=== PATIENT | female | born 1975 | race Caucasian/White ===

== ENCOUNTER 2017-04-12 18:57 | Emergency (ER) | payer MEDICAID ==
[2017-04-12 19:03] VITALS: BP 132/81
--- NOTE | 2017-04-12 19:53 | ER Document Report ---
ED General - General Chief Complaint: Pain All Over Stated Complaint: WEAK,FEVER,TIGHT CHEST Time Seen by Provider: 04/12/17 19:05 Mode of Arrival: Ambulatory Information source: Patient TRAVEL OUTSIDE OF THE [place] 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, she denies any other ill contacts, no abdominal pain, no chest pain, no nausea, vomiting or diarrhea, no urinary symptoms - Related Data Allergies/Adverse Reactions: No Known Allergies Allergy (Verified 04/12/17 19:03) Past Medical History - General Information source: Patient - Social History Smoking Status: Current Every Day Smoker Drug Abuse: None Family History: Reviewed & Not Pertinent Renal/ Medical History: Denies: Hx Peritoneal Dialysis Past Surgical History: Reports: Hx Section, Hx Tubal Ligation - Immunizations Hx Diphtheria, Pertussis, Tetanus Vaccination: Yes Review of Systems - Review of Systems Constitutional: See HPI EENT: See HPI Cardiovascular: No symptoms reported Respiratory: No symptoms reported Gastrointestinal: No symptoms reported Genitourinary: No symptoms reported Female Genitourinary: No symptoms reported Musculoskeletal: See HPI Skin: No symptoms reported Hematologic/Lymphatic: No symptoms reported Neurological/Psychological: No symptoms reported -: Yes All other systems reviewed and negative Physical Exam - Vital signs Vitals: Temp Pulse Resp BP Pulse Ox 99.9 F 109 H 18 132/81 H 93 04/12/17 19:00 04/12/17 19:00 04/12/17 19:00 04/12/17 19:00 04/12/17 19:00 Interpretation: Normal - General General appearance: Appears well, Alert - HEENT Head: Normocephalic, Atraumatic Eyes: Normal Conjunctiva: Normal Extraocular movements intact: Yes Eyelashes: Normal Pupils: PERRL Sinus: Maxillary - Tenderness, Tenderness Nasal: Normal Mouth/Lips: Normal - Respiratory Respiratory status: No respiratory distress Chest status: Nontender Breath sounds: Normal Chest palpation: Normal - Cardiovascular Rhythm: Regular Heart sounds: Normal auscultation Murmur: No - Abdominal Inspection: Normal Distension: No distension Bowel sounds: Normal Tenderness: Nontender Organomegaly: No organomegaly - Back Back: Normal, Nontender - Extremities General upper extremity: Normal inspection, Nontender, Normal color, Normal ROM , Normal temperature General lower extremity: Normal inspection, Nontender, Normal color, Normal ROM , Normal temperature, Normal weight bearing. No: Roderick's sign - Neurological Neuro grossly intact: Yes Cognition: Normal Orientation: AAOx4 [place] Coma Scale Eye Opening: Spontaneous [place] Coma Scale Verbal: Oriented [place] Coma Scale Motor: Obeys Commands [place] Coma Scale Total: 15 Speech: Normal Motor strength normal: LUE, RUE, LLE, RLE Sensory: Normal - Psychological Associated symptoms: Normal affect, Normal mood - Skin Skin Temperature: Warm Skin Moisture: Dry Skin Color: Normal Course - Re-evaluation Re-evalutation: 04/12/17 20:45 Patient with signs and symptoms consistent with acute sinusitis, she was started on antibiotics and advised to drink plenty fluids, take Tylenol or Motrin as needed for fever pain, follow-up with a primary care provider or return if symptoms worsen, patient acknowledges understanding and agreement with this plan - Vital Signs Vital signs: Temp Pulse Resp BP Pulse Ox 99.9 F 109 H 18 132/81 H 93 04/12/17 19:00 04/12/17 19:00 04/12/17 19:00 04/12/17 19:00 04/12/17 19:00 Discharge - Discharge Clinical Impression: Acute sinusitis Qualifiers: Sinusitis location: maxillary Recurrence: non-recurrent Qualified Code(s): J01.00 - Acute maxillary sinusitis, unspecified Condition: Stable Disposition: HOME, SELF-CARE Instructions: Sinusitis ([facility]) Additional Instructions: Follow up with your primary care provider in one to 2 days. Return to the emergency room immediately if symptoms worsen or any additional concerns. Prescriptions: Amox Tr/Potassium Clavulanate [Augmentin 875-125 Tablet] 1 tab PO BID #20 tablet Forms: Smoking Cessation Education
== END 2017-04-12 19:55 | disposition home or self-care (01) ==
LOC: ER 18:57
DX: J01.00 Acute maxillary sinusitis, unspecified (principal)
CPT/HCPCS: 99283

== ENCOUNTER 2017-04-17 21:31 | Emergency (ER) | payer MEDICAID ==
--- NOTE | 2017-04-17 23:27 | RADIOLOGY REPORT (SQ) ---
EXAM DESCRIPTION: CHEST PA/LAT COMPLETED DATE/TIME: 04/17/2017 11:19 pm REASON FOR STUDY: fever COMPARISON: 06/15/2013 EXAM PARAMETERS: NUMBER OF VIEWS: two views TECHNIQUE: Digital Frontal and Lateral radiographic views of the chest acquired. RADIATION DOSE: NA LIMITATIONS: none FINDINGS: LUNGS AND PLEURA: No opacities, masses or pneumothorax. No pleural effusion. MEDIASTINUM AND HILAR STRUCTURES: No masses or contour abnormalities. HEART AND VASCULAR STRUCTURES: Heart normal size. No evidence for failure. BONES: No acute findings. HARDWARE: None in the chest. OTHER: No other significant finding. IMPRESSION: NO SIGNIFICANT RADIOGRAPHIC FINDING IN THE CHEST. TECHNICAL DOCUMENTATION: JOB ID: [id number] [employer]- All Rights Reserved
--- NOTE | 2017-04-18 00:01 | ER Document Report ---
ED General - General Chief Complaint: Flu Symptoms Stated Complaint: FEVER Time Seen by Provider: 04/17/17 22:54 Notes: Patient is a 42-year-old female who presents with complaint of fever and body aches for almost 2 weeks. She was seen here on April 13 and started on Augmentin for sinus infection. Just prior to that she had a tooth removed approximately 5-6 days earlier. During that time she did have a dental abscess. After that the swelling in her face has gone down and she went on a trip to [place]. 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 She then started to feel as if she had body aches fevers and some congestion. She has had mild cough. She is a smoker. She was then placed on Augmentin. She said she was feeling better. She said yesterday and this morning she felt very good and then this afternoon and evening she started to have body aches and feel unwell again. Patient denies any tick bites or bug bites that she is aware of. TRAVEL OUTSIDE OF THE [place] IN LAST 30 DAYS: No - Related Data Allergies/Adverse Reactions: No Known Allergies Allergy (Verified 04/12/17 19:03) Past Medical History - Social History Smoking Status: Current Every Day Smoker Frequency of alcohol use: None Drug Abuse: None Family History: Reviewed & Not Pertinent Patient has suicidal ideation: No Patient has homicidal ideation: No Renal/ Medical History: Denies: Hx Peritoneal Dialysis Past Surgical History: Reports: Hx Section, Hx Tubal Ligation - Immunizations Hx Diphtheria, Pertussis, Tetanus Vaccination: Yes Review of Systems - Review of Systems Notes: My Normal Review Basic REVIEW OF SYSTEMS: CONSTITUTIONAL : Subjective fever. Temp at home is been around 99. EENT: Some nasal congestion. RESPIRATORY: Denies cough, cold, or chest congestion. Denies shortness of breath, difficulty breathing, or wheezing. GASTROINTESTINAL: Denies abdominal pain. Denies nausea, vomiting, or diarrhea. Denies constipation. Last BM: GENITOURINARY: Denies difficulty urinating, painful urination, burning, frequency, or blood in urine. MUSCULOSKELETAL: Denies neck or back pain or joint pain or swelling. SKIN: Denies rash or skin lesions. NEUROLOGICAL: Denies altered mental status or loss of consciousness. Denies headache. Denies weakness or paralysis or loss of use of either side. Denies problems with gait or speech. Denies sensory or motor loss. ALL OTHER SYSTEMS REVIEWED AND NEGATIVE. Physical Exam - Vital signs Vitals: Temp Pulse Resp BP Pulse Ox 99.5 F 113 H 16 136/85 H 95 04/17/17 21:59 04/17/17 21:59 04/17/17 21:59 04/17/17 21:59 04/17/17 21:59 - Notes Notes: General Appearance: Well nourished, alert, cooperative, no acute distress, no obvious discomfort. Vitals: reviewed, See vital signs table. Head: no swelling or tenderness to the head Eyes: PERRL, EOMI, Conjuctiva clear Mouth: No decreasd moisture Throat: No tonsillar inflammation, No airway obstruction, No lymphadenopathy Neck: Supple, no neck tenderness Lungs: No wheezing, No rales, No rhonci, No accessory muscle use, good air exchange bilaterally. Heart: Tachycardic rate, Regular rythm, No murmur, no rub Abdomen: Normal BS, soft, No rigidity, No abdominal tenderness, No guarding, no rebound, no abdominal masses, no organomegaly Extremities: strength 5/5 in all extremities, good pulses in all extremities, no swelling or tenderness in the extremities, no edema. Skin: warm, dry, appropriate color, no rash Neuro: speech clear, oriented x 3, normal affect, responds appropriately to questions. Course - Re-evaluation Re-evalutation: 04/18/17 01:09 Patient has flulike symptoms. She says she has had some congestion but does not appear overly congested on exam. She has mainly body aches and low-grade fevers at home. Being that it is summertime we do have to have concern for possible [place] spotted fever as that would be a common cause of her symptoms in this part of the country. I do not titers for this. I will start on doxycycline. I encouraged her follow-up closely with her primary care doctor for reevaluation. She did have the dental work approximately a week and half ago. I do not suspect meningitis and that the patient clinically looks well, she does not have neck stiffness, she does not have high fevers. I do not think she requires lumbar puncture. Also symptoms have been ongoing for over a week and if she had bacterial meningitis she should be much more ill at this time. Patient strongly encouraged to return to ER if she has worsening or symptoms or if she feels that she is worsening in any way. Patient agrees with plan will be discharged home. Dictation of this chart was performed using voice recognition software; therefore, there may be some unintended grammatical errors. - Vital Signs Vital signs: Temp Pulse Resp BP Pulse Ox 99.5 F 113 H 16 136/85 H 95 04/17/17 21:59 04/17/17 21:59 04/17/17 21:59 04/17/17 21:59 04/17/17 21:59 - Laboratory Laboratory results interpreted by me: 04/18/17 00:35 Ur Leukocyte Esterase TRACE H Discharge - Discharge Clinical Impression: Body aches, Sinus congestion Condition: Good Disposition: HOME, SELF-CARE Additional Instructions: The exact cause of your body aches and flulike symptoms is not 100% clear at this time. Your mono test was negative. He still may have some form of sinus infection. Please continue take the Augmentin. Please quit smoking. A common cause of flulike symptoms in the summertime is something called [place] spotted fever. I will place you on an antibiotic called doxycycline. We have drawn titers for this. These titers usually take approximately 2 days to come back. Please call the number [phone]. They will be able to tell you the results. Please follow-up with your doctor in 2-3 days for close reevaluation and informed him/her of the blood work that was drawn while your visit here. It is very important that you return to the ER immediately if you have diarrhea , recurrent fevers over 100.6 despite taking Tylenol, feel that her symptoms are worsening, or severe headache with neck stiffness. Referrals: CARMEN KAHN MD [Primary Care Provider] - 04/20/17
[2017-04-18 00:53] LABS: APPEARANCE,URINE SLIGHTLY-CLOUDY; BILIRUBIN,URINE NEGATIVE (NEGATIVE); GLUCOSE, URINE NEGATIVE (NEGATIVE); KETONES,URINE NEGATIVE (NEGATIVE); LEUKOCYTE ESTERASE,URINE TRACE (NEGATIVE); NITRITE,URINE NEGATIVE (NEGATIVE); PROTEIN,URINE NEGATIVE (NEGATIVE); URINE SPECIFIC GRAVITY 1.014; UROBILINOGEN,URINE NEGATIVE mg/dL (<2.0)
[2017-04-18] MEDS ORDERED: DOXYCYCLINE HYCLATE 100 MG TABLET PO ONE (01:05)
[2017-04-18 01:43] VITALS: BP 118/72
[2017-04-19 19:05] LABS: LYME DISEASE IGG AND IGM AB <0.91 ISR (0.00-0.90)
[2017-04-21 10:07] LABS: ROCKY MTN SPOTTED FEV IGG EIA Negative (Negative)
== END 2017-04-18 01:25 | disposition home or self-care (01) ==
LOC: ER 21:31
DX: M79.1 Myalgia (principal); J32.9 Chronic sinusitis, unspecified; R50.9 Fever, unspecified; F17.200 Nicotine dependence, unspecified, uncomplicated; Z98.51 Tubal ligation status
CPT/HCPCS: 99284; 36415; 86308; 81001; 86757 ×2; 86618 ×2; 86617 ×2; 71020; J3490

== ENCOUNTER → 2017-05-27 | Outpatient (CLI) | payer MEDICAID ==
--- NOTE | 2017-05-27 14:13 | RADIOLOGY REPORT (SQ) ---
EXAM DESCRIPTION: MRI CERVICAL SPINE WITHOUT COMPLETED DATE/TIME: 05/27/2017 9:15 am REASON FOR STUDY: DORSOPATHY UNSPECIFIED M53.9 DORSOPATHY, UNSPECIFIED COMPARISON: None. TECHNIQUE: Sagittal and Axial imaging includes T1, T2, STIR and gradient echo sequences. LIMITATIONS: Motion. FINDINGS: ALIGNMENT: Reversal of the lordotic curve. VERTEBRAE: Mild height loss at C5 and C6 which appears chronic. BONE MARROW: Mild reactive edema endplates C5-6. DISCS: Desiccation multiple levels. HARDWARE: None in the spine. CORD AND BASE OF BRAIN: Normal in size and signal intensity. SOFT TISSUES: No soft tissue masses. C1-C2: No significant spinal stenosis. C2-C3: No significant spinal stenosis or exit foraminal stenosis. C3-C4: No significant spinal stenosis or exit foraminal stenosis. C4-C5: Ventral impression on the thecal sac due to disc bulge. Mild neural foraminal narrowing bilat erally. C5-C6: Chronic endplate change. Ventral cord contact due to disc osteophyte complex. Severe neural foraminal narrowing bilaterally. C6-C7: Ventral cord contact. Moderate right and severe left neural foraminal narrowing. C7-T1: No significant spinal stenosis or exit foraminal stenosis. UPPER THORACIC: Incompletely imaged. No significant spinal stenosis or exit foraminal stenosis. OTHER: No other significant finding. IMPRESSION: Mild spinal stenosis C5- 6 and C6-7. TECHNICAL DOCUMENTATION: JOB ID: [id number] [employer]- All Rights Reserved
== END ==
LOC: RAD 08:29
PROVIDERS: ATTEND Family Medicine
DX: M53.9 Dorsopathy, unspecified (principal); M48.02 Spinal stenosis, cervical region
CPT/HCPCS: 72141

== ENCOUNTER → 2017-09-29 | Outpatient (CLI) | payer MEDICAID ==
--- NOTE | 2017-09-29 11:56 | RADIOLOGY REPORT (SQ) ---
EXAM DESCRIPTION: CERV SP 3 VIEW OR LESS COMPLETED DATE/TIME: 09/29/2017 11:40 am REASON FOR STUDY: M54.12 RADICULOPATHY, CERVICAL REGION (FLEX/EXT ONLY) M54.12 RADICULOPATHY, CERVI [place] REGION COMPARISON: MRI cervical spine 05/27/2017 TECHNIQUE: Lateral flexion and extension radiographs of the spine. NUMBER OF VIEWS: Two views. LIMITATIONS: None. FINDINGS: Normal cervical spine alignment. Disc spaces are well maintained. No prevertebral soft t issue swelling. Since the MRI 05/27/2017, patient has undergone discectomy and fusion at C5-6 and C6-7 with metallic d isc spacers and anterior fixation plate with anchoring screws in the C5, C6, and C7 vertebral bodies. There is subtle lucency around the screws at the C5 level which could indicate loosening of hardware. There is no instability on flexion/extension. IMPRESSION: No instability on flexion extension post fusion at C5-6 and C6-7. TECHNICAL DOCUMENTATION: JOB ID: [id number] [employer]- All Rights Reserved
== END ==
LOC: RAD 11:25
PROVIDERS: ATTEND Specialist
DX: M54.12 Radiculopathy, cervical region (principal)
CPT/HCPCS: 72040

== ENCOUNTER → 2017-12-28 | Outpatient (CLI) | payer MEDICAID ==
--- NOTE | 2017-12-28 10:21 | RADIOLOGY REPORT (SQ) ---
EXAM DESCRIPTION: SCOLIOSIS SERIES COMPLETED DATE/TIME: 12/28/2017 9:57 am REASON FOR STUDY: M53.9 DORSOPATHY, UNSPECIFIED G90.2 ARY'S SYNDROME M53.9 DORSOPATHY, UNSPECIF IED COMPARISON: None. NUMBER OF VIEWS: One view. TECHNIQUE: Standing AP exam of the thoracolumbar spine with measurement of the HOWARD angles. LIMITATIONS: None. FINDINGS: 12 thoracic and 5 lumbar vertebral bodies are present. 7 of convex rightward thoracic curvature is present from the top of T5 to the bottom of T8. 7 of convex leftward lumbar curvature is present from the top of L1 to the bottom of L5. Mild bilateral costovertebral joint bony spurring at T9. There is bulky facet arthropathy bilaterally at L4-5 and L5-S1. At the upper edge of the field of view, there fusion with hardware at C5-6 and C6-7. IMPRESSION: SCOLIOSIS WITH MEASUREMENTS ABOVE. TECHNICAL DOCUMENTATION: JOB ID: [id number] [employer]- All Rights Reserved Reading location - IP/workstation name: [email or web address]
--- NOTE | 2017-12-28 11:55 | RADIOLOGY REPORT (SQ) ---
EXAM DESCRIPTION: MRI HEAD WITHOUT COMPLETED DATE/TIME: 12/28/2017 9:42 am REASON FOR STUDY: G90.2 ARY'S SYNDROME G90.2 ARY'S SYNDROME M53.9 DORSOPATHY, UNSPECIFIED Changes in right eye vision COMPARISON: MRI cervical spine 05/27/2017 CT brain 01/22/2011 TECHNIQUE: Multiplanar imaging includes non-contrasted T1, T2, FLAIR, and diffusion with ADC map seq uences. Images stored on PACS. LIMITATIONS: None. FINDINGS: ANATOMY: No anomalies. Normal vascular flow voids. Pituitary fossa normal. CSF SPACES: Normal in size and contour. No hemorrhage. CEREBRUM: No MR evidence of acute ischemic change, acute intracranial hemorrhage, mass effect, or mid line shift. There are multiple foci of increased FLAIR/ T2 signal along the bifrontal and biparietal subcortical white matter which likely represent minimal gliosis along perivascular spaces. This could be seen in patients with migraines. Demyelinating disease is possible but considered less likely. POSTERIOR FOSSA: No signal alteration. No hemorrhage. No edema, masses or mass effect. Internal tess tory canals, cerebello-pontine angles, mastoids normal. DIFFUSION IMAGING: Negative for acute or sub-acute infarction. ORBITS: No masses. Globes normal. PARANASAL SINUSES: No fluid levels. Mucosa normal. OTHER: Limited view of the high cervical internal carotid artery is in the field of view, carotid art eries at the skull base demonstrate no gross evidence of dissection. IMPRESSION: No acute findings. Punctate foci of increased signal along bifrontal and biparietal subcortical white matter likely mini mal gliosis along perivascular spaces. EVIDENCE OF ACUTE STROKE: NO. TECHNICAL DOCUMENTATION: JOB ID: [id number] [employer]- All Rights Reserved Reading location - IP/workstation name: [email or web address]
== END ==
LOC: RAD 09:11
PROVIDERS: ATTEND Family Medicine
DX: G90.2 Horner's syndrome (principal); M53.9 Dorsopathy, unspecified; M41.84 Other forms of scoliosis, thoracic region; M41.86 Other forms of scoliosis, lumbar region
CPT/HCPCS: 70551; 72082

== ENCOUNTER → 2018-03-05 | Outpatient (CLI) | payer MEDICAID ==
--- NOTE | 2018-03-05 12:14 | RADIOLOGY REPORT (SQ) ---
EXAM DESCRIPTION: CHEST 2 VIEWS COMPLETED DATE/TIME: 03/05/2018 12:05 pm REASON FOR STUDY: ARY SYNDROME COMPARISON: 04/17/2017 EXAM PARAMETERS: NUMBER OF VIEWS: two views TECHNIQUE: Digital Frontal and Lateral radiographic views of the chest acquired. RADIATION DOSE: NA LIMITATIONS: none FINDINGS: LUNGS AND PLEURA: No opacities, masses or pneumothorax. No pleural effusion. MEDIASTINUM AND HILAR STRUCTURES: No masses or contour abnormalities. HEART AND VASCULAR STRUCTURES: Heart normal size. No evidence for failure. BONES: No acute findings. HARDWARE: None in the chest. OTHER: Hardware, anterior fusion lower cervical spine. IMPRESSION: 1 No significant interval changes since the previous examination dated 04/17/2017. No ac [place] finding. TECHNICAL DOCUMENTATION: JOB ID: [id number] [employer]- All Rights Reserved Reading location - IP/workstation name: [email or web address]
== END ==
LOC: RAD 11:11
PROVIDERS: ATTEND Family Medicine
DX: G90.2 Horner's syndrome (principal)
CPT/HCPCS: 71046

== ENCOUNTER → 2019-07-10 | Outpatient (CLI) | payer MEDICAID ==
--- NOTE | 2019-07-10 11:32 | RADIOLOGY REPORT (SQ) ---
EXAM DESCRIPTION: CHEST 2 VIEWS COMPLETED DATE/TIME: 07/10/2019 11:06 am REASON FOR STUDY: R06.02 SHORTNESS OF BREATH COMPARISON: 03/05/2018 EXAM PARAMETERS: NUMBER OF VIEWS: two views TECHNIQUE: Digital Frontal and Lateral radiographic views of the chest acquired. RADIATION DOSE: NA LIMITATIONS: none FINDINGS: LUNGS AND PLEURA: No opacities, masses or pneumothorax. No pleural effusion. MEDIASTINUM AND HILAR STRUCTURES: No masses or contour abnormalities. HEART AND VASCULAR STRUCTURES: Heart normal size. No evidence for failure. BONES: No acute findings. HARDWARE: None in the chest. OTHER: No other significant finding. IMPRESSION: NO ACUTE RADIOGRAPHIC FINDING IN THE CHEST. TECHNICAL DOCUMENTATION: JOB ID: [id number] [employer]- All Rights Reserved Reading location - IP/workstation name: [email or web address]
== END ==
LOC: RAD 10:42
PROVIDERS: ATTEND Nurse Practitioner Primary Care
DX: R06.02 Shortness of breath (principal)
CPT/HCPCS: 71046

== ENCOUNTER → 2019-09-29 | Outpatient (CLI) | payer MEDICAID ==
--- NOTE | 2019-09-29 12:52 | RADIOLOGY REPORT (SQ) ---
EXAM DESCRIPTION: MRI LUMBAR SPINE WITHOUT COMPLETED DATE/TIME: 09/29/2019 11:57 am REASON FOR STUDY: M54.16 RADICULOPATHY LUMBAR REGION M54.16 RADICULOPATHY, LUMBAR REGION COMPARISON: None. TECHNIQUE: Sagittal and Axial imaging includes T1, T2, STIR and gradient echo sequences. Coronal T2/ HASTE imaging. LIMITATIONS: None. FINDINGS: VISUALIZED UPPER ABDOMEN: Limited evaluation. No acute or suspicious findings suggested. SEGMENTATION: No transitional anatomy. The lowest well-developed disc space is labeled L5-S1. ALIGNMENT: Anatomic. VERTEBRAE: Intact. BONE MARROW: Marked reactive endplate changes L5-S1. DISC SIGNAL: Marked loss of height and T2 signal L5-S1. POSTERIOR ELEMENTS: Generally intact. No pars defect evident. HARDWARE: None in the spine. CORD AND CONUS: Normal in size and signal intensity. Conus at the appropriate level. SOFT TISSUES: No aortic aneurysm seen. No bulky retroperitoneal adenopathy or mass. No paraspinal mas s or fluid. L1-L2: No significant spinal stenosis or exit foraminal stenosis. L2-L3: No significant spinal stenosis or exit foraminal stenosis. L3-L4: No significant spinal stenosis or exit foraminal stenosis. L4-L5: Mild disc bulge. Posterior element overgrowth. Mild narrowing of the exit foramina central c anal stenosis. L5-S1: Marked degenerative disc with broad-based bulge and marked loss of height. Disc osteophyte co mplex. Posterior elements intact. Marked narrowing of both exit foramina. LOWER THORACIC: Incompletely imaged. No stenosis seen. SACRUM: Visualized upper sacrum intact. OTHER: No other significant findings. IMPRESSION: Marked degenerative disc disease L5-S1 with loss of height and diffuse bulge. Marked na rrowing of the exit foramina. TECHNICAL DOCUMENTATION: JOB ID: [id number] [employer]- All Rights Reserved Reading location - IP/workstation name: [email or web address]
== END ==
LOC: RAD 11:14
PROVIDERS: ATTEND Nurse Practitioner Primary Care
DX: M54.16 Radiculopathy, lumbar region (principal)
CPT/HCPCS: 72148

== ENCOUNTER → 2020-01-31 | Outpatient (CLI) | payer MEDICAID ==
--- NOTE | 2020-01-31 10:54 | RADIOLOGY REPORT (SQ) ---
EXAM DESCRIPTION: CERV SP 3 VIEW OR LESS IMAGES COMPLETED DATE/TIME: 01/31/2020 10:35 am REASON FOR STUDY: NECK PAIN M54.2 CERVICALGIA COMPARISON: 09/29/2017 NUMBER OF VIEWS: Three views. TECHNIQUE: AP, lateral and odontoid radiographic images acquired of the cervical spine. LIMITATIONS: None. FINDINGS: MINERALIZATION: Normal. ALIGNMENT: Anatomic. VERTEBRAE: Vertebral bodies of normal height. DISCS: No significant disc space narrowing. No large osteophytes. HARDWARE: Post surgical changes with hardware anterior fusion C5-C7. Since the previous examination , the lucency surrounding the screws at the C5 level and the disc prostheses at C5-C6 appears to have iincreased raising the question of loosening, or possible infection. SOFT TISSUES: No masses or calcifications. Lung apices clear. OTHER: The patient is edentulous. IMPRESSION: 1. Post surgical changes with hardware anterior fusion C5-C7. 2. Since the previous examination dated 12/28/2017, the lucency surrounding the screws at C5 and disc prostheses at C5-C6 has increased raising the question of loosening, or possible infection. TECHNICAL DOCUMENTATION: JOB ID: [id number] [employer]- All Rights Reserved Reading location - IP/workstation name: [email or web address]
== END ==
LOC: RAD 10:25
PROVIDERS: ATTEND Nurse Practitioner Family
DX: M54.2 Cervicalgia (principal)
CPT/HCPCS: 72040

== ENCOUNTER → 2020-06-11 | Outpatient (CLI) | payer MEDICAID ==
--- NOTE | 2020-06-11 12:10 | RADIOLOGY REPORT (SQ) ---
EXAM DESCRIPTION: CT CERVICAL SPINE WITHOUT IMAGES COMPLETED DATE/TIME: 06/11/2020 9:15 am REASON FOR STUDY: T84.296A [facility] COMPL OF INTERNAL FIXATION DEVICE OF VERTEBRAE, INIT T84.296A [facility] COMPL OF INTERNAL FIXATION DEVICE OF VERTEBRAE COMPARISON: C-spine x-ray dated 01/31/2020. TECHNIQUE: Axial images acquired through the cervical spine without intravenous contrast. Images re viewed with lung, soft tissue and bone windows. Reconstructed coronal and sagittal MPR images review ed. Images stored on PACS. All CT scanners at this facility use dose modulation, iterative reconstruction, and/or weight based d osing when appropriate to reduce radiation dose to as low as reasonably achievable (ALARA). [facility]: Dose Right [facility]: CareDose [facility]: Dose Right [facility]: Teradose 4D [facility]: LiquidPlanner RADIATION DOSE: CT Rad equipment meets quality standard of care and radiation dose reduction techniq ues were employed. CTDIvol: 22.0 mGy. DLP: 565 mGy-cm. mGy. LIMITATIONS: None. FINDINGS: ALIGNMENT: Anatomic. MINERALIZATION: Normal. VERTEBRAL BODIES: No fractures or dislocation. DISCS: No significant disc disease. FACETS, LATERAL MASSES, POSTERIOR ELEMENTS: No fractures. No dislocation. No acute findings. HARDWARE: Anterior plate and screws at C5, C 6, and C 7. Disc spacers at C5-C6 and C6-C7. Mild radi olucency adjacent to the screws at C7. No significant radiolucencies related to the other hardware. VISUALIZED RIBS: No fractures. LUNG APICES AND SOFT TISSUES: No significant or acute findings. OTHER: No other significant finding. IMPRESSION: SURGICAL CHANGES WITH HARDWARE DESCRIBED. MILD RADIOLUCENCY ADJACENT TO THE SCREWS A T C7. NO SIGNIFICANT FINDINGS RELATED TO THE OTHER HARDWARE. TECHNICAL DOCUMENTATION: JOB ID: [id number] Quality ID # [id number]: Final reports with documentation of one or more dose reduction techniques (e.g., Au tomated exposure control, adjustment of the mA and/or kV according to patient size, use of iterative reconstruction technique) 2010 [email or web address]- All Rights Reserved Reading location - IP/workstation name: [email or web address]
== END ==
LOC: RAD 08:26
PROVIDERS: ATTEND Physician Assistant
DX: T84.296A Other mechanical complication of internal fixation device of vertebrae, initial encounter (principal); X58.XXXA Exposure to other specified factors, initial encounter; M54.2 Cervicalgia
CPT/HCPCS: 72125